=== PATIENT | male | born 1960 | race Caucasian/White ===

== ENCOUNTER 2025-07-08 12:19 | Emergency (ER) | payer MEDICARE, SELFPAY ==
[2025-07-08 12:21] VITALS: BP 172/83; PULSE 54; RESP 13; TEMP 36.2; O2SAT 100; BMI 34.7
--- NOTE | 2025-07-08 13:07 | EDS_ITS ---
HPI History of Present Illness Chief Complaint: Hypoglycemia Narrative Narrative: Patient is a 64-year-old male who has a past medical history hypertension, type 2 diabetes, CAD status post CABG approximately year and a half ago who presented to the emergency department with a chief complaint of hyperglycemia. Patient states that he was on a mower and his coworkers thought he was having a stroke. He states that he ate breakfast this morning and did not do any increased activity out of the ordinary for himself. He states that yesterday he changed his mower deck and noted that his continuous glucose monitor fell off and he needs to replace this he states that the replacement should be at home when he gets there. He notes that yesterday he went hunting and he got a deer and had no issues. He states that after receiving the dextrose as per EMS his glucose was noted to be 50 and his symptoms resolved and he does feel better. He states that he does feel shaky still but otherwise has no specific complaints. [facility] Medical History Hypertension Diabetes type 2 Allergy/AdvReac Type Severity Reaction Status Date / Time Penicillins Allergy Mild Hives Verified 07/08/25 12:20 metformin AdvReac Mild Nausea/Vom/ Verified 07/08/25 12:20 Diarrhea Surgical History S/P triple vessel bypass Social History Smoking Status: Never smoker ROS ROS ED ROS Narrative Constitutional: Denies any fevers or chills denies headache Eyes: Denies double vision Cardiovascular: Denies chest pain Respiratory: Denies shortness of breath Abdomen: Denies abdominal pain nausea vomit diarrhea : Denies urinary symptoms Neurological: Denies any numbness, weakness, tingling currently Musculoskeletal: Denies back pain Skin: Denies any rashes or lesions EXAM Physical Exam Narrative Exam Narrative: General: Patient lying in bed rest comfortably did not appear to be in acute distress Head: Atraumatic, normocephalic Eyes: PERRL bilaterally, EOMI bilaterally, no conjunctival injection noted Neck: Soft, supple, trachea midline Cardiovascular: Patient bradycardic Respiratory: Clear to auscultation bilaterally Abdomen: Soft, nondistended, nontender to palpation Extremities: +5/5 strength in the bilateral lower extremities Neurological: Patient follow commands knew that he was at [facility] the year is 2024. NIH of 0 GCS 15 Skin: Warm, dry, intact no rashes or lesions noted Const Vital Signs: 07/08/25 12:21 07/08/25 12:48 07/08/25 13:20 Temperature 97.2 F L Temperature Source Axillary Pulse Rate 54 L 60 Respiratory Rate 13 12 Respiratory Effort Normal Respiratory Pattern Normal Blood Pressure 172/83 H 141/51 H Blood Pressure Mean 112 81 Pulse Ox 100 100 Oxygen Delivery Method Room Air Room Air MDM MDM MDM Narrative Medical decision making narrative: Patient is a 64-year-old male who presented to the emergency department after hypoglycemic episode. On the differential diagnose includes but not limited to hypoglycemia, stroke although his symptoms quickly resolved after glucose was corrected, electrolyte abnormality. Once workup is obtained reviewed he will be reevaluated. Patient glucose rechecked here in the emergency department is noted to be 210. Patient's CBC was reviewed and showed a leukocytosis of 12,000 this is likely reactive, he was 14.8, platelet count of 282. Patient sodium is 142, [place] 3.3, creatinine was noted be 1.36 do not have anything to compare to this could be from slight dehydration he was advised to increase his water intake or underlying chronic kidney disease. Patient AST and ALT were 24 and 15 respectively point care glucose was noted to be 210. Patient was given food here in the emergency department and he was observed he feels much better he would like to go home at this point time. Patient's EKG was also reviewed which showed sinus bradycardia with rate of 58 bpm MA interval normal at 154. There advised to follow-up with his doctor and have a standing return with worsening symptoms or concerns. He is agreeable to plan all quest ion concerns answered is discharged home in stable condition Lab Data Labs: Laboratory Results - last 24 hr 07/08/25 07/08/25 12:42 12:52 WBC 12.5 H RBC 4.76 Hgb 14.8 Hct 43.5 MCV 91.4 MCH 31.1 MCHC 34.0 RDW Std Deviation 42.7 RDW Coeff of Darnell 12.7 Plt Count 282 MPV 11.6 Immature Gran % (Auto) 0.300 Neut % (Auto) 80.0 H Lymph % (Auto) 12.2 L [place] % (Auto) 6.0 Eos % (Auto) 1.3 Baso % (Auto) 0.2 Absolute Neuts (auto) 10.0 H Absolute Lymphs (auto) 1.53 Nucleated RBC % 0 Sodium 142 Potassium 3.3 Chloride 105 Carbon Dioxide 25.8 Anion Gap 11 BUN 24 H Creatinine 1.36 H Estim Creat Clear Calc 66.26 Est GFR (MDRD) Non-Af 57 L BUN/Creatinine Ratio 17.7 Glucose 68 L Calcium 10.1 Total Bilirubin 0.41 AST 24 ALT 15 Alkaline Phosphatase 95 Total Protein 7.6 Albumin 4.3 Globulin 3.3 Albumin/Globulin Ratio 1.3 POC Glucose 210 H Discharge Plan Triage Chief Complaint: Hypoglycemia ED Provider: Jose Benitez Dx/Rx/DC Orders Clinical Impression: History of diabetes mellitus, Hypoglycemia, History of coronary artery bypass graft Primary Care Provider: ELY ROCK Referrals: ELY ROCK [Other] Activity Restrictions/Additional Instructions: Follow-up with your doctors in outpatient setting. Return with worsening symptoms or any other concern Print Language: [place] Disposition Disposition: Home, Self Care
--- NOTE | 2025-07-08 13:09 | EKG12_ITS ---
Test Reason : HYPERGLYCEMIA Blood Pressure : */* mmHG Vent. Rate : 58 BPM Atrial Rate : 58 BPM P-R Int : 154 ms QRS Dur : 90 ms QT Int : 428 ms P-R-T Axes : 51 53 90 degrees QTcB Int : 420 ms Sinus bradycardia Possible Inferior infarct , age undetermined Abnormal ECG Confirmed by MIRELLA ALTAMIRANO, SUJATHA ([id number]), editor city JOSE PEREZ ([id number]) on 07/09/2025 10:50:59 AM Referred By: TB Confirmed By: SUJATHA VU MD
[2025-07-08 13:10] LABS: Hematocrit 43.5 % (40-54); Hemoglobin 14.8 g/dL (13.0-16.5); Immature Granulocytes Count 0.040 X10^3/uL (0.0-0.0); Mean Corp Hgb Conc 34.0 g/dL (32-36); Mean Corpuscular Volume 91.4 fL (80-94); Mean Platelet Vol. 11.6 fl (6.2-12.0); NRBC Flagged by Analyzer 0 % (0-5); Platelet Count 282 K/mm3 (150-450); RBC Distribution Width CV 12.7 % (11.6-14.6); RBC Distribution Width SD 42.7 fl (35.1-43.9); Red Blood Count 4.76 M/mm3 (4.6-6.2); White Blood Count 12.5 K/mm3 (4.4-11.0)
[2025-07-08 13:20] VITALS: BP 141/51; PULSE 60; RESP 12; O2SAT 100
[2025-07-08] MEDS: 0.9% Normal Saline (1000mL) 1,000 ML 999 ML IV (13:21)
[2025-07-08 13:37] LABS: AST(SGOT) 24 U/L (<=37); Alanine Aminotransfer ALT/SGPT 15 U/L (<=46); Albumin, Serum 4.3 g/dL (3.4-4.8); Alkaline Phosphatase 95 U/L (40-129); Anion Gap 11 (5-15); BUN 24 mg/dL (4-19); BUN/Creat Ratio 17.7 RATIO (10-20); Calcium,Total 10.1 mg/dL (7.6-11.0); Carbon Dioxide 25.8 mmol/L (21.0-32.0); Chloride 105 mmol/L (98-108); Estimated Creatinine Clearance 66.26 ml/min (50-250); Globulin 3.3 g/dL (2.2-4.2); Glucose 68 mg/dL (70-99); Potassium 3.3 mmol/L (3.3-5.1)
[2025-07-08 14:00] VITALS: BP 146/82; PULSE 95; RESP 18; O2SAT 100
[2025-07-08 14:42] LABS: Red Blood Cells-Urine 0 SEEN /hpf (0-5); Squamous Epithelial Cells - UA 0 SEEN /hpf (0-5)
[2025-07-08 14:45] LABS: Color, Urine Yellow (Yellow); Glucose, Dipstick 100 mg/dl (Normal); Ketone-Dipstick 5 mg/dl (Negative); Leukocyte Esterase-Dipstick 25 /ul (Negative); Nitrite-Dipstick Negative (Negative); Occult Blood-Urine Negative /ul (Negative); Protein-Dipstick 30 mg/dl (Negative); Specific Gravity, Urine 1.025 (1.002-1.030); Urine Bilirubin Dipstick Negative (Negative)
[2025-07-08 14:54] VITALS: BP 146/82; PULSE 95; RESP 18; TEMP 36.3; O2SAT 100
[2025-07-08 14:54] LABS: Calcium Oxalate Crystals Ur 1+ /hpf (<or=2+); Mucous, Urine 2+ /hpf (<or=2+)
== END 2025-07-08 14:55 | disposition home or self-care (01) ==
PROVIDERS: Emergency Provider Emergency Medicine; Visit Provider Emergency Medicine
DX: E11.649 Type 2 diabetes mellitus with hypoglycemia without coma (principal); I10 Essential (primary) hypertension; I25.10 Atherosclerotic heart disease of native coronary artery without angina pectoris; Z95.1 Presence of aortocoronary bypass graft
CPT/HCPCS: 80053; 81001; 82962; 85025; 93005; 99285; A4216